=== PATIENT | female | born 1980 | race African-American/Black ===

== ENCOUNTER 2017-10-26 13:18 | Emergency (ER) | payer MEDICAID, OTHER ==
[~2017-10-26] VITALS: Ht 170.2 cm; Wt 63.0 kg
[2017-10-26] MEDS ORDERED: KETOROLAC 30MG/ML VIAL IV STA (15:22)
[2017-10-26] MEDS ORDERED: ONDANSETRON HCL 4MG/2ML VIAL IV STA ×2 (15:22→17:23)
[2017-10-26] MEDS ORDERED: SODIUM CHLORIDE 0.9% 1,000 ML IV ONE (15:22)
[2017-10-26 15:54] LABS: BASOPHILS % 0.2 % (0.0-2.0); EOSINOPHILS % 0.2 % (0.0-5.0); HEMATOCRIT. 37.9 % (36.0-48.0); HEMOGLOBIN. 12.8 g/dL (12.0-16.0); LYMPHOCYTES % 10.1 % (20.0-50.0); MEAN CORPUSCULAR HEMOGLOBIN 31.2 pg (28.0-32.0); MEAN CORPUSCULAR VOLUME 92.6 fL (81.0-99.0); MEAN PLATELET VOLUME 8.5 fl (7.4-10.4); NEUTROPHILS % 86.5 % (40.0-76.0); PLATELET 172 x1000/uL (130-400); RED CELL DISTRIBUTION WIDTH 13.3 % (11.6-14.6)
[2017-10-26 16:01] LABS: CHLORIDE 106 mEq/L (98-107)
[2017-10-26 16:05] LABS: PROTHROMBIN TIME 10.7 sec (9.4-11.6)
[2017-10-26 17:19] LABS: CLARITY URINE CLOUDY (CLEAR); COLOR URINE YELLOW (YELLOW); KETONES URINE 2+ (NEGATIVE); LEUKOCYTE ESTERASE URINE TRACE (NEGATIVE); NITRITE URINE NEGATIVE (NEGATIVE); OCCULT BLOOD URINE 2+ (NEGATIVE); PH URINE 8.5 (4.5-8.0); PROTEIN URINE TRACE (NEGATIVE); SPECIFIC GRAVITY URINE 1.023 (1.005-1.030); UROBILINOGEN URINE 0.2 E.U./dL (0.2-1.0)
[2017-10-26] MEDS ORDERED: MORPHINE SULFATE 4 MG/ML CPJ (NOT FOR IM USE) IV STA (17:23)
[2017-10-26] MEDS ORDERED: CEFTRIAXONE 1 G PREMIX 50 ML IV ONE (19:15)
[2017-10-26] MEDS ORDERED: MORPHINE SULFATE 4 MG/ML CPJ (NOT FOR IM USE) IV ONE (19:15)
[2017-10-26] MEDS ORDERED: AZITHROMYCIN 500 MG TABLET PO ONE (19:15)
[2017-10-26] MEDS ORDERED: LORAZEPAM 1MG TABLET PO ONE (20:00)
[2017-10-26 21:32] VITALS: BP 138/86
[2017-10-30 15:10] LABS: CHLAMYDIA TRACHOMATIS NAA Negative (Negative); NEISSERIA GONORRHOEAE NAA Negative (Negative)
== END 2017-10-26 21:39 | disposition home or self-care (01) ==
LOC: ER 14:35
DX: N30.00 Acute cystitis without hematuria (principal); N83.8 Other noninflammatory disorders of ovary, fallopian tube and broad ligament
CPT/HCPCS: 36415; 74176; 76830; 76856; 80053; 81003; 81025; 83690; 84702; 85025; 85610; 87491; 87591; 96361; 96365; 96375; 96376; 99285; J0696; J1885; J2270; J2405; J7030; Z7610